=== PATIENT | male | born 1965 | race Caucasian/White ===

== ENCOUNTER 2017-11-21 17:44 | Emergency (ER) | payer SELFPAY | END 2017-11-21 20:25 | disposition left against medical advice (07) | LOC: FTE 20:25 | DX: Z53.21 Procedure and treatment not carried out due to patient leaving prior to being seen by health care provider (principal) ==

== ENCOUNTER 2017-11-22 09:54 | Emergency (ER) | payer OTHER | END 2017-11-22 10:34 | disposition home or self-care (01) | LOC: E/R 09:54 | DX: R21 Rash and other nonspecific skin eruption (principal) | CPT/HCPCS: 99283 ==